=== PATIENT | female | born 1960 | race Caucasian/White ===

== ENCOUNTER 2018-01-18 05:25 | Inpatient (IN) | payer BC, OTHER ==
[2018-01-16 16:55] LABS: BASOPHILS % (AUTO) 0.4 % (0.0-2.0); EOSINOPHILS # (AUTO) 0.2 K/uL (0.0-0.4); EOSINOPHILS % (AUTO) 2.8 % (0.0-4.0); HEMATOCRIT 38.4 % (36-48); HEMOGLOBIN 13.1 g/dL (12.0-16.0); LYMPHOCYTES # (AUTO) 2.2 K/uL (1.0-5.5); LYMPHOCYTES % (AUTO) 30.7 % (20.5-51.5); MEAN CORPUSCULAR HEMOGLOBIN 30 pg (27-31); MEAN CORPUSCULAR HGB CONC 34 % (32-36); MEAN CORPUSCULAR VOLUME 88 fL (79.0-98.0); MONOCYTES # (AUTO) 0.5 K/uL (0.0-1.0); MONOCYTES % (AUTO) 7.2 % (1.7-9.3); NEUTROPHILS # (AUTO) 4.4 K/uL (1.8-7.7); NEUTROPHILS % (AUTO) 58.9 % (40.0-70.0); PLATELET COUNT (AUTO) 252 K/uL (130-430); RED BLOOD CELL COUNT(AUTO) 4.35 MIL/uL (4.2-6.2); RED CELL DISTRIBUTION WIDTH 11.9 % (9.0-15.0); WHITE BLOOD COUNT (AUTO) 7.3 K/uL (4.8-10.8)
[2018-01-16 17:10] LABS: ALBUMIN 3.8 g/dL (3.4-4.8); CALCIUM 9.4 mg/dL (8.4-11.0); CREATININE 0.66 mg/dL (0.55-1.30); POTASSIUM 3.7 mmol/L (3.5-5.1); TOTAL BILIRUBIN 0.3 mg/dL (0.0-1.0)
[2018-01-16 18:10] LABS: PROTHROMBIN TIME 9.7 SECS (9.5-12.5)
[~2018-01-18] VITALS: Ht 157.5 cm; Wt 69.9 kg
[2018-01-18] MEDS ORDERED: SIMV10TA2 PO (06:53)
[2018-01-18] MEDS ORDERED: POLYMYXIN 500,000/BACIT.10,000 UNITS in NS IRR 1 L IR ONE (07:58)
[2018-01-18] MEDS ORDERED: CEFAZOLIN 1 GM IVPB PREMIX 50 ML IV SCH (08:00)
[2018-01-18] MEDS ORDERED: SEVOFLURANE 15 MIN GAS INH ONE (08:00)
[2018-01-18] MEDS ORDERED: NS IRRIG SOLN 1000 ML IR ONE (08:00)
[2018-01-18] MEDS ORDERED: BUPIVACAINE LIPOSOME/PF 266 MG/20 ML VIAL INFIL ONE (08:00)
[2018-01-18] MEDS ORDERED: DEXTROSE 50% JECT 50 ML DISP.SYRIN IVP ONE (08:00)
[2018-01-18] MEDS ORDERED: CLINDAMYCIN 2% VAGINAL CREAM VG ONE (08:00)
[2018-01-18] MEDS ORDERED: ONDANSETRON HCL 4 MG/2 ML VIAL IVP ONE (08:00)
[2018-01-18] MEDS ORDERED: ROCURONIUM BROMIDE 10 MG/ML (ZEMURON) IV ONE (08:00)
[2018-01-18] MEDS ORDERED: FUROSEMIDE 20 MG/2 ML VIAL IVP ONE (08:00)
[2018-01-18] MEDS ORDERED: LR 1,000 ML IV.SOLN IV ONE (08:00)
[2018-01-18] MEDS ORDERED: MIDAZOLAM HCL 5 MG/5 ML VIAL IVP ONE (08:00)
[2018-01-18] MEDS ORDERED: BUPIVACAINE /EPINEPHRINE/PF 0.5% 30 ML VIAL INJ ONE (08:00)
[2018-01-18] MEDS ORDERED: fentaNYL CITRATE 250 MCG/5 ML AMP IV ONE (08:00)
[2018-01-18] MEDS ORDERED: PROPOFOL 200MG/ 20ML VIAL (DIPRIVAN) IV ONE (08:00)
[2018-01-18] MEDS ORDERED: HYDROcodone/ACETAMIN 5-325 MG TAB (NORCO/ VICODIN) PO PRN (10:30)
[2018-01-18] MEDS ORDERED: LR 1,000 ML IV SCH (11:39)
[2018-01-18] MEDS ORDERED: MORPHINE 4 MG/ML INJ. SYRINGE IVP PRN ×3 (11:45)
[2018-01-18] MEDS ORDERED: METOCLOPRAMIDE HCL 10 MG/2 ML VIAL IVP PRN (11:45)
[2018-01-18] MEDS ORDERED: MORPHINE 4 MG/ML INJ. SYRINGE ONE (12:57)
[2018-01-18] MEDS: ONDANSETRON HCL 4 MG/2 ML VIAL IVP PRN ×2 (14:04→21:06)
[2018-01-18] MEDS: D5/0.45 NS 1,000 ML IV SCH ×2 (14:07→20:10)
[2018-01-18] MEDS: CEFAZOLIN 1 GM IVPB PREMIX 50 ML IV SCH ×2 (14:08→20:08)
[2018-01-18] MEDS: metroNIDAZOLE 500 mg/NS 100 ML IV SCH ×2 (14:18→21:04)
[2018-01-18 14:20] VITALS: BP_SYST 116
[2018-01-18 15:02] VITALS: BP_SYST 126
[2018-01-18] MEDS: HYDROmorphone 1 MG INJ. 1 MG/ML AMPUL IVP PRN ×2 (15:53→21:12)
[2018-01-18 17:11] VITALS: BP_SYST 108
[2018-01-18 18:05] LABS: RED BLOOD CELL COUNT(AUTO) 4.11 MIL/uL (4.2-6.2)
[2018-01-18 18:12] LABS: HEMATOCRIT 36.9 % (36-48); HEMOGLOBIN 12.8 g/dL (12.0-16.0); MEAN CORPUSCULAR HEMOGLOBIN 31 pg (27-31); MEAN CORPUSCULAR HGB CONC 35 % (32-36); MEAN CORPUSCULAR VOLUME 90 fL (79.0-98.0); PLATELET COUNT (AUTO) 227 K/uL (130-430); RED CELL DISTRIBUTION WIDTH 11.6 % (9.0-15.0); WHITE BLOOD COUNT (AUTO) 17.1 K/uL (4.8-10.8)
[2018-01-18 18:22] LABS: BAND % (MANUAL) 7 % (0-6); BASOPHILS % (MANUAL) 0 % (0-2); EOSINOPHILS % (MANUAL) 0 % (0-7); LYMPHOCYTES % (MANUAL) 2 % (20-46); MONOCYTES % (MANUAL) 2 % (0-11)
[2018-01-18 20:00] VITALS: BP_SYST 130
[2018-01-19] MEDS: D5/0.45 NS 1,000 ML IV SCH ×2 (02:06→12:24)
[2018-01-19 02:11] VITALS: BP_SYST 106
[2018-01-19] MEDS: HYDROmorphone 1 MG INJ. 1 MG/ML AMPUL IVP PRN ×2 (04:51→09:16)
[2018-01-19] MEDS: ONDANSETRON HCL 4 MG/2 ML VIAL IVP PRN (05:01)
[2018-01-19] MEDS ORDERED: CEFAZOLIN 1 GM IVPB PREMIX 50 ML IV ONE (05:41)
[2018-01-19] MEDS: CEFAZOLIN 1 GM IVPB PREMIX 50 ML IV SCH ×3 (05:44→21:38)
[2018-01-19 06:23] LABS: BASOPHILS % (AUTO) 0.2 % (0.0-2.0); EOSINOPHILS % (AUTO) 0.2 % (0.0-4.0); HEMATOCRIT 32.6 % (36-48); HEMOGLOBIN 11.5 g/dL (12.0-16.0); LYMPHOCYTES # (AUTO) 1.1 K/uL (1.0-5.5); LYMPHOCYTES % (AUTO) 8.7 % (20.5-51.5); MEAN CORPUSCULAR HEMOGLOBIN 32 pg (27-31); MEAN CORPUSCULAR HGB CONC 35 % (32-36); MEAN CORPUSCULAR VOLUME 91 fL (79.0-98.0); MONOCYTES % (AUTO) 7.5 % (1.7-9.3); NEUTROPHILS # (AUTO) 10.9 K/uL (1.8-7.7); PLATELET COUNT (AUTO) 204 K/uL (130-430); RED BLOOD CELL COUNT(AUTO) 3.58 MIL/uL (4.2-6.2); RED CELL DISTRIBUTION WIDTH 11.7 % (9.0-15.0)
[2018-01-19 06:38] LABS: ALBUMIN 2.7 g/dL (3.4-4.8); CALCIUM 7.8 mg/dL (8.4-11.0); CREATININE 0.8 mg/dL (0.55-1.30); POTASSIUM 3.3 mmol/L (3.5-5.1); TOTAL BILIRUBIN 0.5 mg/dL (0.0-1.0)
[2018-01-19 08:22] LABS: NEUTROPHILS % (AUTO) 83.4 % (40.0-70.0)
[2018-01-19 08:36] VITALS: BP_SYST 116
[2018-01-19 11:26] VITALS: BP_SYST 103
[2018-01-19 16:19] VITALS: BP_SYST 116
[2018-01-19] MEDS ORDERED: OXYCODONE/ACETAMINOPHEN 5-325 TABLET PO PRN (16:30)
[2018-01-19] MEDS: OXYCODONE/ACETAMINOPHEN 5-325 TABLET PO PRN (18:03)
[2018-01-19 19:55] VITALS: BP_SYST 120
[2018-01-19] MEDS: SENNOSIDES/DOCUSATE SODIUM 1 TAB TABLET(SENOKOT-S) PO SCH (20:10)
[2018-01-20] VITALS: BP_SYST 128
[2018-01-20] MEDS: D5/0.45 NS 1,000 ML IV SCH ×3 (00:02→21:46)
[2018-01-20] MEDS: CEFAZOLIN 1 GM IVPB PREMIX 50 ML IV SCH ×3 (05:26→21:45)
[2018-01-20 08:00] VITALS: BP_SYST 144
[2018-01-20] MEDS: ONDANSETRON HCL 4 MG/2 ML VIAL IVP PRN (08:50)
[2018-01-20] MEDS: SENNOSIDES/DOCUSATE SODIUM 1 TAB TABLET(SENOKOT-S) PO SCH ×2 (08:50→20:46)
[2018-01-20] MEDS ORDERED: METOCLOPRAMIDE HCL 10 MG/2 ML VIAL IVP PRN (10:30)
[2018-01-20 10:44] LABS: BASOPHILS # (AUTO) 0.1 K/uL (0.0-0.2); BASOPHILS % (AUTO) 0.7 % (0.0-2.0); CALCIUM 8.8 mg/dL (8.4-11.0); CREATININE 0.75 mg/dL (0.55-1.30); EOSINOPHILS # (AUTO) 0.1 K/uL (0.0-0.4); HEMATOCRIT 34.3 % (36-48); HEMOGLOBIN 11.8 g/dL (12.0-16.0); LYMPHOCYTES % (AUTO) 8.3 % (20.5-51.5); MEAN CORPUSCULAR HEMOGLOBIN 31 pg (27-31); MEAN CORPUSCULAR HGB CONC 34 % (32-36); MEAN CORPUSCULAR VOLUME 90 fL (79.0-98.0); MONOCYTES # (AUTO) 0.7 K/uL (0.0-1.0); MONOCYTES % (AUTO) 5.4 % (1.7-9.3); NEUTROPHILS # (AUTO) 10.3 K/uL (1.8-7.7); NEUTROPHILS % (AUTO) 84.6 % (40.0-70.0); PLATELET COUNT (AUTO) 226 K/uL (130-430); POTASSIUM 3.2 mmol/L (3.5-5.1); RED BLOOD CELL COUNT(AUTO) 3.83 MIL/uL (4.2-6.2); RED CELL DISTRIBUTION WIDTH 12.1 % (9.0-15.0); WHITE BLOOD COUNT (AUTO) 12.2 K/uL (4.8-10.8)
[2018-01-20 10:50] LABS: ALBUMIN 3.2 g/dL (3.4-4.8); TOTAL BILIRUBIN 0.4 mg/dL (0.0-1.0)
[2018-01-20] MEDS: SIMETHICONE 80 MG TAB.CHEW PO SCH ×4 (11:02→20:47)
[2018-01-20 12:00] VITALS: BP_SYST 146
[2018-01-20] MEDS: OXYCODONE/ACETAMINOPHEN 5-325 TABLET PO PRN ×2 (16:32→20:48)
[2018-01-20 16:50] VITALS: BP_SYST 127
[2018-01-20 19:48] VITALS: BP_SYST 138
[2018-01-21] VITALS: BP_SYST 125
[2018-01-21] MEDS: OXYCODONE/ACETAMINOPHEN 5-325 TABLET PO PRN ×2 (02:06→11:25)
[2018-01-21] MEDS: CEFAZOLIN 1 GM IVPB PREMIX 50 ML IV SCH ×3 (06:12→21:02)
[2018-01-21 07:18] LABS: BASOPHILS % (AUTO) 0.3 % (0.0-2.0); EOSINOPHILS # (AUTO) 0.3 K/uL (0.0-0.4); EOSINOPHILS % (AUTO) 3.8 % (0.0-4.0); HEMATOCRIT 29.6 % (36-48); HEMOGLOBIN 10.4 g/dL (12.0-16.0); LYMPHOCYTES # (AUTO) 1.6 K/uL (1.0-5.5); LYMPHOCYTES % (AUTO) 17.6 % (20.5-51.5); MEAN CORPUSCULAR HEMOGLOBIN 32 pg (27-31); MEAN CORPUSCULAR HGB CONC 35 % (32-36); MEAN CORPUSCULAR VOLUME 91 fL (79.0-98.0); MONOCYTES # (AUTO) 0.6 K/uL (0.0-1.0); MONOCYTES % (AUTO) 6.3 % (1.7-9.3); NEUTROPHILS # (AUTO) 6.7 K/uL (1.8-7.7); PLATELET COUNT (AUTO) 197 K/uL (130-430); RED BLOOD CELL COUNT(AUTO) 3.27 MIL/uL (4.2-6.2); RED CELL DISTRIBUTION WIDTH 11.7 % (9.0-15.0); WHITE BLOOD COUNT (AUTO) 9.2 K/uL (4.8-10.8)
[2018-01-21 07:19] LABS: ALBUMIN 2.8 g/dL (3.4-4.8); CALCIUM 8.6 mg/dL (8.4-11.0); CREATININE 0.68 mg/dL (0.55-1.30); TOTAL BILIRUBIN 0.4 mg/dL (0.0-1.0)
[2018-01-21 08:00] VITALS: BP_SYST 130
[2018-01-21] MEDS: D5/0.45 NS 1,000 ML IV SCH ×2 (08:16→18:04)
[2018-01-21] MEDS: SENNOSIDES/DOCUSATE SODIUM 1 TAB TABLET(SENOKOT-S) PO SCH ×2 (08:57→20:15)
[2018-01-21] MEDS: SIMETHICONE 80 MG TAB.CHEW PO SCH ×4 (08:57→20:14)
[2018-01-21 12:00] VITALS: BP_SYST 125
[2018-01-21 14:31] VITALS: BP_SYST 130
[2018-01-21 15:56] VITALS: BP_SYST 127
[2018-01-21] MEDS ORDERED: POTASSIUM CHLORIDE 20 MEQ in NS 250 ML IV ONE ×2 (17:15→17:30)
[2018-01-21 20:00] VITALS: BP_SYST 144
[2018-01-22 00:12] VITALS: BP_SYST 137
[2018-01-22] MEDS: D5/0.45 NS 1,000 ML IV SCH ×2 (03:22→12:23)
[2018-01-22] MEDS: CEFAZOLIN 1 GM IVPB PREMIX 50 ML IV SCH ×2 (05:15→13:19)
[2018-01-22 08:20] VITALS: BP_SYST 132
[2018-01-22] MEDS: SIMETHICONE 80 MG TAB.CHEW PO SCH ×2 (08:30→12:23)
[2018-01-22] MEDS: SENNOSIDES/DOCUSATE SODIUM 1 TAB TABLET(SENOKOT-S) PO SCH (08:30)
[2018-01-22 11:18] VITALS: BP_SYST 128
[2018-01-22 15:15] VITALS: BP_SYST 133
[2018-01-22 17:32] VITALS: BP_SYST 133
[2018-01-22] MEDS ORDERED: CIPR-211 PO (17:39)
== END 2018-01-22 18:15 | disposition home or self-care (01) | DRG 331 ==
LOC: SMU 05:25 → EDSTATUS 07:30 → SMU 08:27
PROVIDERS: ADMIT Surgery; ATTEND Specialist
PROC: 0DBU0ZZ Excision of Omentum, Open Approach (ICD-10-PCS; 2018-01-18)
PROC: 0WQF0ZZ Repair Abdominal Wall, Open Approach (ICD-10-PCS; 2018-01-18)
PROC: 0WUF0JZ Supplement Abdominal Wall with Synthetic Substitute, Open Approach (ICD-10-PCS; principal; 2018-01-18 07:30)
PROC: 0JQC0ZZ Repair Pelvic Region Subcutaneous Tissue and Fascia, Open Approach (ICD-10-PCS; 2018-01-22)
PROC: 0JQC0ZZ Repair Pelvic Region Subcutaneous Tissue and Fascia, Open Approach (ICD-10-PCS; 2018-01-22)
PROC: 0TSD0ZZ Reposition Urethra, Open Approach (ICD-10-PCS; 2018-01-22)
PROC: 0WQN0ZZ Repair Female Perineum, Open Approach (ICD-10-PCS; 2018-01-22)
PROC: 0TJB8ZZ Inspection of Bladder, Via Natural or Artificial Opening Endoscopic (ICD-10-PCS; 2018-01-22)
DX: K43.2 Incisional hernia without obstruction or gangrene (principal); E78.00 Pure hypercholesterolemia, unspecified; Z98.51 Tubal ligation status; N39.3 Stress incontinence (female) (male); N81.6 Rectocele; N99.3 Prolapse of vaginal vault after hysterectomy; N81.10 Cystocele, unspecified
CPT/HCPCS: 36415; 71046-TC; 80053; 85007; 85025; 85027; 85610-TC; 85730-TC; 87081; 88302; 88305; 94010; 97110-GP; 97116-GP; 97530-GP; 97535-GP; C1771; C9290; J0690; J1170; J1940; J2250; J2270; J2405; J2704; J2765; J3010; J3480; J3490; J7050; J7120

== ENCOUNTER 2018-12-11 05:50 | Day surgery (SDC) | payer BC, OTHER ==
[~2018-12-11] VITALS: Ht 157.5 cm; Wt 67.1 kg
[~2018-12-11 05:50] MED LIST: CIPR-211 PO; SIMV10TA2 PO
[2018-12-11] MEDS ORDERED: CEFAZOLIN 2 GM IVPB PREMIX 50 ML IV ONE (07:46)
[2018-12-11] MEDS ORDERED: POLYMYXIN 500,000/BACIT.10,000 UNITS in NS IRR 1 L IR ONE (07:53)
[2018-12-11] MEDS ORDERED: CEFAZOLIN SOD 1 GM/ ISO 50 ML PREMIX IV ONE (08:00)
[2018-12-11] MEDS ORDERED: CEFAZOLIN 2 GM IVPB PREMIX 50 ML IV SCH (08:00)
[2018-12-11] MEDS ORDERED: SEVOFLURANE 15 MIN GAS INH ONE (08:10)
[2018-12-11] MEDS ORDERED: LR 1,000 ML IV.SOLN IV ONE (08:10)
[2018-12-11] MEDS ORDERED: MIDAZOLAM HCL 5 MG/5 ML VIAL IVP ONE (08:10)
[2018-12-11] MEDS ORDERED: fentaNYL CITRATE 250 MCG/5 ML AMP IV ONE (08:10)
[2018-12-11] MEDS ORDERED: NEOSTIGMINE METHYLSULFATE 1 MG/ML, 10 ML VIAL IVP ONE (08:10)
[2018-12-11] MEDS ORDERED: ROCURONIUM BROMIDE 10 MG/ML (ZEMURON) IV ONE (08:10)
[2018-12-11] MEDS ORDERED: NS 1000 ML IV.SOLN IV ONE (08:10)
[2018-12-11] MEDS ORDERED: BUPIVACAINE /EPINEPHRINE/PF 0.5% 30 ML VIAL INJ ONE (08:10)
[2018-12-11] MEDS ORDERED: KETOROLAC TROMETHAMINE 30 MG VIAL IVP ONE (08:10)
[2018-12-11] MEDS ORDERED: CLINDAMYCIN 2% VAGINAL CREAM VG ONE (08:10)
[2018-12-11] MEDS ORDERED: ROPIVACAINE HCL/PF 0.2% (NAROPIN) 200 ML PLAST..BAG EP ONE (08:10)
[2018-12-11] MEDS ORDERED: FUROSEMIDE 20 MG/2 ML VIAL IVP ONE (08:10)
[2018-12-11] MEDS ORDERED: METOCLOPRAMIDE HCL 10 MG/2 ML VIAL IVP ONE (08:10)
[2018-12-11] MEDS ORDERED: GLYCOPYRROLATE 0.2 MG/ML VIAL IJ ONE (08:10)
[2018-12-11] MEDS ORDERED: DEXTROSE 50% JECT 50 ML DISP.SYRIN IVP ONE (08:10)
[2018-12-11] MEDS ORDERED: fentaNYL CITRATE/PF 100 MCG/2 ML AMP IVP ONE (08:10)
[2018-12-11] MEDS ORDERED: PROPOFOL 200MG/ 20ML VIAL (DIPRIVAN) IV ONE (08:10)
[2018-12-11] MEDS ORDERED: LR 1,000 ML IV SCH (10:36)
[2018-12-11] MEDS ORDERED: MORPHINE 4 MG/ML INJ. SYRINGE IVP PRN ×3 (10:45)
[2018-12-11] MEDS ORDERED: ONDANSETRON HCL 4 MG/2 ML VIAL IVP PRN (10:45)
[2018-12-11] MEDS ORDERED: HYDROmorphone 2 MG/ML VIAL IVP PRN (12:45)
[2018-12-11 13:40] VITALS: BP_SYST 122
[2018-12-11] MEDS: ceFAZolin SODIUM 2 GM in D5W 100 ML IV SCH ×2 (14:19→21:33)
[2018-12-11 14:55] VITALS: BP_SYST 104
[2018-12-11 15:25] VITALS: BP_SYST 107
[2018-12-11 17:11] VITALS: BP_SYST 104
[2018-12-11] MEDS ORDERED: KETOROLAC TROMETHAMINE 30 MG VIAL IVP PRN (18:00)
[2018-12-11] MEDS ORDERED: OXYCODONE/ACETAMINOPHEN 5-325 TABLET PO PRN (18:30)
[2018-12-11 20:00] VITALS: BP_SYST 114
[2018-12-12 01:20] VITALS: BP_SYST 100
[2018-12-12 07:56] VITALS: BP_SYST 99
== END 2018-12-12 12:45 | disposition home or self-care (01) ==
LOC: SDS 05:50 → SMU 05:50 → SDS 12-12 12:45
PROVIDERS: ATTEND Specialist
DX: N99.3 Prolapse of vaginal vault after hysterectomy (principal); K66.0 Peritoneal adhesions (postprocedural) (postinfection); Z90.710 Acquired absence of both cervix and uterus; Z90.722 Acquired absence of ovaries, bilateral; Z79.899 Other long term (current) drug therapy; E78.00 Pure hypercholesterolemia, unspecified
CPT/HCPCS: 49329; 57200; 57425; 88305; C1727; C1781; J0690 ×2; J1170; J1885; J1940; J2250; J2704; J2710; J2765; J3010 ×2; J3490 ×2; J7030; J7060; J7120; E0190